=== PATIENT | female | born 1940 | race Caucasian/White ===

== ENCOUNTER 2016-06-01 15:39 | Emergency (ER) | payer MEDICARE, OTHER ==
[2016-06-01] MEDS ORDERED: OPTIRAY 350 100 ML VIAL HMH IV ONE (15:40)
[2016-06-01] MEDS ORDERED: ONDANSETRON 4 MG VIAL ONE (20:53)
[2016-06-02] MEDS ORDERED: LEVOFLOXACIN 500 MG TAB ONE (00:13)
[2016-06-02] MEDS ORDERED: PROMETHAZINE 25 MG/ML VIAL ONE (00:38)
[2016-06-02] MEDS ORDERED: SODIUM CHLORIDE 0.9% 50 ML IV ONE (00:39)
== END 2016-06-02 01:09 | disposition home or self-care (01) ==
LOC: ER 15:39
DX: J15.9 Unspecified bacterial pneumonia (principal); R09.1 Pleurisy; Z86.711 Personal history of pulmonary embolism; E11.9 Type 2 diabetes mellitus without complications; E78.00 Pure hypercholesterolemia, unspecified; Z95.0 Presence of cardiac pacemaker; Z79.4 Long term (current) use of insulin; Z79.02 Long term (current) use of antithrombotics/antiplatelets; Z96.659 Presence of unspecified artificial knee joint
CPT/HCPCS: 36415; 71020; 71260; 80053; 82550; 82553; 82947; 84484; 85025; 85610; 85730; 93005; 96361; 96365; 96375; 99285; J2405; J2550; Q9967